=== PATIENT | male | born 1940 | race Caucasian/White ===

== ENCOUNTER 2016-10-23 06:29 | Day surgery (SDC) | payer MEDICARE ==
[~2016-10-23 06:29] MED LIST: Acetaminophen TAB* 325 MG PO PRN; Buffered Lidocaine 0.9% SYRIN* 5 ML/SYR SYRINGE INTRADERM ONE
[2016-10-23] MEDS ORDERED: Neomycin/Polymy/Dex OPHTH.OIN* 3.5 GM ONE (07:35)
[2016-10-23] MEDS ORDERED: Tetracaine 0.5% OPTH.SOL 4 ML* 1 DROP BTL ONE (07:35)
[2016-10-23] MEDS ORDERED: Flurbiprofen 0.03% OPTH.SOL* 2.5 ML BTL ONE (07:35)
[2016-10-23] MEDS ORDERED: Lidocaine 1% MPF* 2 ML VIAL ONE (07:35)
[2016-10-23] MEDS ORDERED: Tropicamide 1% OPTH.SOL* BTL ONE (07:35)
[2016-10-23] MEDS ORDERED: Cyclopentolate 1% OPTH.SOL* 2 ML BTL ONE (07:35)
[2016-10-23] MEDS ORDERED: Phenylephrine 2.5% OPTH.SOL* 2 ML BTL ONE (07:35)
[2016-10-23] MEDS ORDERED: Buffered Lidocaine 0.9% SYRIN* 5 ML/SYR SYRINGE ONE (07:36)
[2016-10-23] MEDS ORDERED: Midazolam* 1 MG/ML 2 ML VIAL (2 MG) ONE ×2 (07:42→08:27)
[2016-10-23 08:18] VITALS: BP 121/75
--- NOTE | 2016-10-23 11:21 | OP ---
DATE OF OPERATION: 10/23/16 [facility] DATE OF : 38 SURGEON: Dr. Sy Barron. [employer]: None. ANESTHESIA: Topical with intravenous sedation. PRE-OP DIAGNOSIS: Cataract, left eye. POST-OP DIAGNOSIS: Cataract, left eye. OPERATIVE PROCEDURE: Phacoemulsification and cataract extraction with posterior chamber intraocular lens implant, left eye. COMPLICATIONS: None. BLOOD LOSS: None. DESCRIPTION OF PROCEDURE: The patient was brought to the operating room and received a small amount of intravenous sedation. A drop of Tetracaine was placed in his left eye. He was prepped and draped in the usual sterile fashion for ophthalmic surgery and attention was directed to the left eye where a speculum was placed. A paracentesis was created at the 5 o'clock position and 0.1 cc of 1 percent preservative-free Lidocaine was injected into the anterior chamber followed by DisCoVisc. The eye was digitally stabilized while a 2.75 mm keratome was used to create a triplanar clear corneal incision at the 3 o'clock position. A continuous curvilinear capsulorrhexis was created with a cystotome and Utrata forceps. BSS on a cannula was used to hydrodissect the lens from the capsule. Phacoemulsification was performed in a [id number]-cno-[id number] technique to create four fragments which were removed. Residual cortical material was removed with irrigation and aspiration. DisCoVisc was used to inflate the capsular bag and an AU00T0 19.0-diopter lens was folded and inserted into the capsular bag. DisCoVisc was removed using irrigation and aspiration. BSS on a cannula was used to hydrate the corneal stroma and seal the wound. At the end of the case the pupil was round and the lens was centered. The eye was of normal pressure and the wound was water tight. The speculum was removed and topical Maxitrol ointment was placed on the surface of the eye. The eye was closed, patched and shielded and the patient was sent to the recovery room in stable condition with post operative instructions and follow-up appointment given. [id number] #: [id number] JEANE
== END 2016-10-23 08:19 | disposition home or self-care (01) ==
LOC: OREAST 06:29
PROVIDERS: ATTEND Ophthalmology
DX: H25.12 Age-related nuclear cataract, left eye (principal); Z85.46 Personal history of malignant neoplasm of prostate
CPT/HCPCS: A9270-GY; J2250

== ENCOUNTER 2016-10-30 09:03 | Day surgery (SDC) | payer MEDICARE ==
[2016-10-30] MEDS ORDERED: fentaNYL* 50 MCG/ML 2 ML VIAL (100 MCG VIAL) ONE (09:22)
[2016-10-30] MEDS ORDERED: Midazolam* 1 MG/ML 2 ML VIAL (2 MG) ONE (09:22)
[2016-10-30 10:35] VITALS: BP 125/73
[2016-10-30] MEDS ORDERED: Tetracaine 0.5% OPTH.SOL 4 ML* 1 DROP BTL ONE (13:23)
[2016-10-30] MEDS ORDERED: Neomycin/Polymy/Dex OPHTH.OIN* 3.5 GM ONE (13:23)
[2016-10-30] MEDS ORDERED: Buffered Lidocaine 0.9% SYRIN* 5 ML/SYR SYRINGE ONE (13:23)
[2016-10-30] MEDS ORDERED: Tropicamide 1% OPTH.SOL* BTL ONE (13:23)
[2016-10-30] MEDS ORDERED: Cyclopentolate 1% OPTH.SOL* 2 ML BTL ONE (13:23)
[2016-10-30] MEDS ORDERED: Flurbiprofen 0.03% OPTH.SOL* 2.5 ML BTL ONE (13:23)
[2016-10-30] MEDS ORDERED: Phenylephrine 2.5% OPTH.SOL* 2 ML BTL ONE (13:23)
[2016-10-30] MEDS ORDERED: Lidocaine 1% MPF* 2 ML VIAL ONE (13:23)
--- NOTE | 2016-10-30 15:02 | OP ---
DATE OF OPERATION: 10/30/16 [facility] DATE OF : 38 SURGEON: Dr. Sy Barron. [employer]: None. ANESTHESIOLOGIST: Deny Smith MD ANESTHESIA: Topical with intravenous sedation. PRE-OP DIAGNOSIS: Cataract, right eye. POST-OP DIAGNOSIS: Cataract, right eye. OPERATIVE PROCEDURE: Phacoemulsification and cataract extraction with posterior chamber intraocular lens implant, right eye. COMPLICATIONS: None. BLOOD LOSS: None. DESCRIPTION OF PROCEDURE: The patient was brought to the operating room and received a small amount of intravenous sedation. A drop of Tetracaine was placed in his right eye. He was prepped and draped in the usual sterile fashion for ophthalmic surgery and attention was directed to the right eye where a speculum was placed. A paracentesis was created at the 11 o'clock position and 0.1 cc of 1 percent preservative-free Lidocaine was injected into the anterior chamber followed by DisCoVisc. The eye was digitally stabilized while a 2.75 mm keratome was used to create a triplanar clear corneal incision at the 9 o'clock position. A continuous curvilinear capsulorrhexis was created with a cystotome and Utrata forceps. BSS on a cannula was used to hydrodissect the lens from the capsule. Phacoemulsification was performed in a divide-and- conquer technique to create four fragments which were removed. Residual cortical material was removed with irrigation and aspiration. DisCoVisc was used to inflate the capsular bag and an AU00T0 19.0 Diopter lens was folded and inserted into the capsular bag. DisCoVisc was removed using irrigation and aspiration. BSS on a cannula was used to hydrate the corneal stroma and seal the wound. At the end of the case the pupil was round and the lens was centered. The eye was of normal pressure and the wound was water tight. The speculum was removed and topical Maxitrol ointment was placed on the surface of the eye. The eye was closed, patched and shielded and the patient was sent to the recovery room in stable condition with post operative instructions and follow-up appointment given. [id number] #: [id number] MTDD
== END 2016-10-30 10:42 | disposition home or self-care (01) ==
LOC: OREAST 09:03
PROVIDERS: ATTEND Ophthalmology
DX: H25.11 Age-related nuclear cataract, right eye (principal); Z79.82 Long term (current) use of aspirin; Z85.46 Personal history of malignant neoplasm of prostate
CPT/HCPCS: A9270-GY; J2250; J3010

== ENCOUNTER 2024-03-16 09:36 | Inpatient (IN) ==
[2024-03-16 10:52] LABS: Hematocrit 36.7 % (38-53); Hemoglobin 12.3 g/dL (13.2-16.3); Mean Corpuscular Hgb Conc 33.5 g/dL (31-36); Mean Corpuscular Volume 92.5 fL (80-97); Red Blood Count 3.97 10^6/uL (4.06-5.63); Red Cell Distribution Width 13.8 % (12-17); White Blood Count 11.6 10^3/uL (3.6-10.2)
[2024-03-16 11:08] LABS: INR 1.14 (0.85-1.14)
[2024-03-16 11:09] LABS: Urine Appearance Turbid; Urine Bilirubin Negative (Negative); Urine Blood Negative (Negative); Urine Color Light-Yellow; Urine Glucose Negative (Negative); Urine Ketones Negative (Negative); Urine Nitrite 2+ (Negative); Urine Protein Negative (Negative); Urine Urobilinogen Negative (Negative); Urine pH 6.5 (5.0-8.0)
[2024-03-16 11:46] LABS: Urine Bacteria 1+ /HPF (Absent); Urine Red Blood Cell Trace(0-2/hpf) /HPF (0-Trace); Urine White Blood Cell 3+(>20/hpf) /HPF (0-Trace)
[2024-03-16 11:54] LABS: Albumin 3.5 g/dL (3.2-5.2); Albumin/Globulin Ratio 1.1 (1-3); Calcium 8.7 mg/dL (8.6-10.3); Creatinine, Serum 0.95 mg/dL (0.67-1.17); Globulin 3.3 g/dL (2-4); Potassium 4.4 mmol/L (3.5-5.0); Total Protein 6.8 g/dL (6.4-8.9); eGFR CKD-EPI 78.9 (>60)
[2024-03-16 12:16] LABS: ABS Lymphocytes 0.9 10^3/uL (1.0-4.8); ABS Monocytes 0.8 10^3/uL (0.0-1.1); ABS Neutrophils 9.8 10^3/uL (1.5-7.6); Eosinophil % 0.2 %; Lymphocyte % 7.6 %; Mean Platelet Volume 7.4 fL (7.5-11.2); Platelet Count 183 10^3/uL (150-450)
[2024-03-16 12:24] LABS: High Sensitivity Troponin 1 Hr 5 pg/mL (<20)
[2024-03-16] MEDS: Acetaminophen IV 1 GM/100ML 1,000 MG/100 ML BAG IV ONE (13:04)
[2024-03-16] MEDS: cefTRIAXone 1 gm/50 mL D5W 1 GM/50 ML BAG IV ONE (13:16)
[2024-03-16] MEDS: Iohexol 300 (CONTRAST) 10 ML SDV IV ONE (14:06)
[2024-03-16] MEDS: Morphine 4 MG/ML VIAL (1 ml) IV ONE (14:50)
[2024-03-16 15:10] LABS: High Sensitivity Troponin 3 Hr 6 pg/mL (<20)
[2024-03-16] MEDS ORDERED: Sulfur Hexaflouride MICROSPHR 25 MG VIAL IV PRN (16:16)
[2024-03-16] MEDS: Lactated Ringers 1000 ml BAG 1,000 ML IV SCH (16:40)
[2024-03-16] MEDS: Morphine 2 MG/ML SYRINGE IV PRN (19:37)
[2024-03-16 19:38] LABS: C Reactive Protein 3.27 mg/L (<8.01)
[2024-03-16] MEDS: Heparin 5000 UNITS/ML 1 mL VIAL SUBCUT ONE (19:39)
[2024-03-16] MEDS ORDERED: Senna TAB 8.6 mg TAB PO PRN (21:23)
[2024-03-16] MEDS ORDERED: Magnesium Hydroxide LIQ 30 ML UDC PO PRN (21:23)
[2024-03-16] MEDS ORDERED: Polyethylene Glycol 3350 17 GM PACKET PO PRN (21:23)
[2024-03-16] MEDS ORDERED: Heparin 5000 UNITS/ML 1 mL VIAL SUBCUT SCH (22:00)
[2024-03-16] MEDS: Lactated Ringers 1000 ml BAG 1,000 ML IV ONE (22:50)
[2024-03-16 22:59] LABS: ABS Basophils 0.1 10^3/uL (0.0-0.1); ABS Eosinophils 0.1 10^3/uL (0.0-0.5); ABS Lymphocytes 0.9 10^3/uL (1.0-4.8); ABS Monocytes 0.6 10^3/uL (0.0-1.1); ABS Neutrophils 12.9 10^3/uL (1.5-7.6); Eosinophil % 0.4 %; Hematocrit 30.8 % (38-53); Hemoglobin 10.2 g/dL (13.2-16.3); Lymphocyte % 6.2 %; Mean Corpuscular Hemoglobin 30.8 pg (27-33); Mean Corpuscular Hgb Conc 33.2 g/dL (31-36); Mean Corpuscular Volume 92.8 fL (80-97); Mean Platelet Volume 7.7 fL (7.5-11.2); Platelet Count 160 10^3/uL (150-450); Red Blood Count 3.32 10^6/uL (4.06-5.63); Red Cell Distribution Width 14.1 % (12-17); White Blood Count 14.5 10^3/uL (3.6-10.2)
[2024-03-17 05:40] LABS: ABS Eosinophils 0.2 10^3/uL (0.0-0.5); ABS Monocytes 0.5 10^3/uL (0.0-1.1); ABS Neutrophils 7.6 10^3/uL (1.5-7.6); Eosinophil % 2.5 %; Hematocrit 30.9 % (38-53); Hemoglobin 10.5 g/dL (13.2-16.3); Lymphocyte % 10.8 %; Mean Corpuscular Hemoglobin 31.4 pg (27-33); Mean Corpuscular Volume 92.1 fL (80-97); Mean Platelet Volume 7.7 fL (7.5-11.2); Platelet Count 149 10^3/uL (150-450); Red Blood Count 3.35 10^6/uL (4.06-5.63); Red Cell Distribution Width 14.2 % (12-17); White Blood Count 9.3 10^3/uL (3.6-10.2)
[2024-03-17 05:55] LABS: Calcium 7.8 mg/dL (8.6-10.3); Creatinine, Serum 0.93 mg/dL (0.67-1.17); Potassium 4.2 mmol/L (3.5-5.0)
[2024-03-17 11:23] LABS: Magnesium 1.6 mg/dL (1.9-2.7)
[2024-03-17] MEDS: cefTRIAXone 1 gm/50 mL D5W 1 GM/50 ML BAG IV SCH (12:02)
[2024-03-17] MEDS: Magnesium Sulf 4 GM/100 ML IV 4,000 MG/100 ML BAG IVPB ONE (12:45)
[2024-03-17] MEDS: Morphine 2 MG/ML SYRINGE IV PRN (18:53)
[2024-03-17 19:00] VITALS: BP 109/63
[2024-03-17] MEDS ORDERED: Magnesium Hydroxide LIQ 30 ML UDC PO SCH (21:23)
== END 2024-03-17 19:10 | disposition short-term general hospital (02) | DRG 536 ==
LOC: ED 09:36 → EDHOLD 14:33 → SSU 22:18
PROVIDERS: ADMIT Internal Medicine; ATTEND Internal Medicine